=== PATIENT | male | born 1975 | race Caucasian/White ===

== ENCOUNTER 2021-01-16 16:47 | Inpatient (IN) | payer OTHER, SELFPAY ==
[~2021-01-16] VITALS: Ht 188 cm; Wt 64.0 kg
--- NOTE | 2021-01-16 17:42 | NUR ---
ASSUMED CARE OF PATIENT. 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 PT REPORTS HE HAS BEEN DOING METH. TAVERN KEEPER ON. SINUS TACH NOTED. VS STABLE. CALL LIGHT IN PLACE. WILL CONTINUE TO MONITOR.
--- NOTE | 2021-01-16 18:05 | NUR ---
DR GRANADOS IN ROOM
--- NOTE | 2021-01-16 18:27 | NUR ---
PT IN CT
[2021-01-16 18:43] LABS: MEAN CORPUSCULAR HEMOGLOBIN 27.4 pg (27.5-34.5); MEAN CORPUSCULAR HGB CONC 33.1 g/dL (33.2-36.2); MEAN PLATELET VOLUME 8.5 fL (7.4-10.4); PLATELET COUNT 287 x10^3/uL (130-400); RED CELL DISTRIBUTION WIDTH 19.4 % (9.4-14.8)
[2021-01-16 18:45] LABS: MD YES
--- NOTE | 2021-01-16 18:52 | NUR ---
BEDSIDE REPORT RECEIVED FROM AQUILES CALVO
[2021-01-16 18:53] LABS: ALANINE AMINOTRANSFERASE 12 U/L (12-78); ALBUMIN 1.9 g/dL (3.4-5.0); ANION GAP 7 mmol/L (5-15); CALCIUM 7.9 mg/dL (8.5-10.1); CHLORIDE 97 mmol/L (98-107); CREATININE 1.03 mg/dL (0.7-1.3)
[2021-01-16 18:55] LABS: ALKALINE PHOSPHATASE 53 U/L (45-117); BILIRUBIN,TOTAL 0.7 mg/dL (0.2-1.0); TOTAL PROTEIN 8.8 g/dL (6.4-8.2)
--- NOTE | 2021-01-16 18:55 | NUR ---
PT SITTING UPRIGHT ON EMMA VALERO, VSS. PT DENIES ANY NEEDS AT THIS TIME. CALL LIGHT AND BELONGINGS WITHIN REACH. CONTINUOUS MONITORING IN PLACE.
--- NOTE | 2021-01-16 18:58 | NUR ---
REPORT GIVEN TO LUBNA NEWMAN
[2021-01-16] MEDS ORDERED: SODIUM CHLORIDE 0.9% 1,000ML IVBOLUS ONE ×2 (19:00→21:30)
[2021-01-16] MEDS ORDERED: SODIUM CHLORIDE FLUSH 10ML SYR IVF ONE (19:00)
[2021-01-16] MEDS ORDERED: chlorPROMAZINE 25 MG/ML, 1ML IM ONE (19:30)
[2021-01-16 20:06] LABS: ANISOCYTOSIS 1+; LYMPH#(MANUAL) 1.34 x10^3/uL (1-3.4); LYMPHS% (MANUAL) 14 % (22-44); MONOS#(MANUAL) 2.11 x10^3/uL (0.3-2.7); MONOS% (MANUAL) 22 % (2-9); MYELOCYTES% (MANUAL) 1 % (0-0); REACTIVE LYMPHS % (MANUAL) 1 % (0-0); SEG#(MANUAL) 5.95 x10^3/uL (1.8-6.8); SEGS% (MANUAL) 62 % (42-75)
[2021-01-16 20:07] LABS: POLYCHROMASIA 1+; ROULEAUX 1+
[2021-01-16 20:08] LABS: HYPOCHROMIA 1+; STOMATOCYTES 1+
[2021-01-16 20:09] LABS: <PLATELET ESTIMATE> ADEQUATE; <PLT MORPHOLOGY> NORMAL PLT MORPH
[2021-01-16] MEDS ORDERED: CALCIUM CARBONATE 500 MG TAB.CHEW ONE (20:20)
[2021-01-16] MEDS ORDERED: CALCIUM CARBONATE 500 MG TABLET PO ONE (20:30)
--- NOTE | 2021-01-16 21:05 | NUR ---
PT SITTING UPRIGHT ON GURNEY, FRIEND AT BEDSIDE. PT REPORTS SIGNIFICANT RELIEF OF HICCUPS FOLLOWING ACID OPERATOR. PT STATES HE WILL "TRY TO PEE FOR A SAMPLE". PT DENIES ANY NEEDS AT THIS TIME. CALL LIGHT AND BELONGINGS WITHIN REACH
[2021-01-16] MEDS ORDERED: ACETAMINOPHEN 325 MG TABLET ONE (21:28)
[2021-01-16] MEDS ORDERED: PIPERACILLIN/TAZO/PMX 3.375GM 50 ML ONE (21:28)
[2021-01-16] MEDS ORDERED: ACETAMINOPHEN 325 MG TABLET PO ONE (21:30)
[2021-01-16] MEDS ORDERED: PIPERACILLIN/TAZO 3.375 GM in DEXTROSE 5% 50 ML IVPB ONE (21:30)
[2021-01-16 21:32] LABS: AMPHETAMINE SCREEN, URINE Positive (Negative); BARBITURATE SCREEN, URINE Negative (Negative); BENZODIAZEPINE SCREEN, URINE Negative (Negative); CANNABINOID SCREEN, URINE Negative (Negative); COCAINE SCREEN, URINE Negative (Negative); METHADONE SCREEN, URINE Negative (Negative); OPIATE SCREEN, URINE Negative (Negative)
[2021-01-16 21:37] LABS: MICROSCOPIC INDICATED
--- NOTE | 2021-01-16 21:47 | NUR ---
LAB AT BEDSIDE TO OBTAIN BLOOD CULTURES X2 PRIOR TO ABX ADMIN
--- NOTE | 2021-01-16 22:07 | NUR ---
HOSPITALIST AT BEDSIDE
[2021-01-16] MEDS: PIPERACILLIN/TAZO 3.375 GM in DEXTROSE 5% 50 ML IVPB SCH (22:29)
[2021-01-16] MEDS ORDERED: ONDANSETRON 2MG/ML, 2ML IVPush PRN (22:30)
[2021-01-16] MEDS ORDERED: BACLOFEN 10 MG TABLET PO PRN (22:30)
[2021-01-16] MEDS ORDERED: PROMETHAZINE 25 MG/ML, 1ML IM PRN (22:30)
[2021-01-16] MEDS ORDERED: SODIUM CHLORIDE 0.9% 1,000 ML IV SCH (22:30)
[2021-01-16] MEDS ORDERED: ACETAMINOPHEN 325 MG TABLET PO PRN (22:30)
[2021-01-16] MEDS ORDERED: VANCOMYCIN PER PHARMACY MC PRN (22:30)
--- NOTE | 2021-01-16 22:38 | NUR ---
CALL WITH HOSPITALIST DR. JEAN REGARDING ADMISSION LEVEL OF CARE FOR PT. HOSPITALIST STATES TO ADMIT PT TO MED TELE OR CARD TELE FLOOR. DR. JEAN WILL PLACE ORDERS TO REFLECT
--- NOTE | 2021-01-16 22:41 | NUR ---
ADDITIONAL CALL TO HOSPITALIST DR. JEAN REGARDING DOWNWARD TRENDING VITALS, PER ORDER. PT TO BE STARTED ON ADDITIONAL BOLUS NS AND CONTINUOUS CARDIAC AND PULSE OX MONITORING. ERP ALSO AWARE
--- NOTE | 2021-01-16 22:53 | NUR ---
VITAL SIGNS CONTINUALL TRENDING DOWNWARD, SEE VITALS DOCUMENTATION, HOSPITALIST AWARE AND ERP VANBIBBER AT BEDSIDE. PT MOVED FROM ED ROOM 16 TO TRAUMA 3.
--- NOTE | 2021-01-16 23:01 | NUR ---
BEDSIDE REPORT TO SIMONE CALVO
--- NOTE | 2021-01-16 23:03 | NUR ---
Pt evaluated and moved to trauma room for higher acuity monitoring/care. Dr Bauer consulted re: POC with no further orders other than fluid bolus.
--- NOTE | 2021-01-16 23:04 | NUR ---
bedside report from marianna valdez. pt moved to trauma bay due to hypotension. pt alert and answering questions appropriately.
[2021-01-16] MEDS ORDERED: NOREPINEPHRINE 8 MG in SODIUM CHLORIDE 0.9% 242 ML IV PRN (23:30)
--- NOTE | 2021-01-16 23:33 | NUR ---
pt started on levophed. preparing for dr siddiqui to placed central line.
[2021-01-16 23:43] LABS: IRON LEVEL 31 mcg/dL (65-175)
--- NOTE | 2021-01-16 23:46 | NUR ---
consent for central line signed by pt and added to paper chart.
--- NOTE | 2021-01-16 23:48 | NUR ---
blood consent signed by pt and added to paper chart.
--- NOTE | 2021-01-16 23:49 | NUR ---
pt reports daily motrin intake and black emesis x "a couple of days"
[2021-01-17] MEDS ORDERED: PANTOPRAZOLE 80 MG in SODIUM CHLORIDE 0.9% 100 ML IV SCH
[2021-01-17] MEDS ORDERED: PANTOPRAZOLE 80 MG in SODIUM CHLORIDE 0.9% 50 ML IVPB ONE
[2021-01-17 00:08] LABS: % IRON SATURATION 19 % (20-55); TOTAL IRON BINDING CAPACITY 167 mcg/dL (250-450)
[2021-01-17] MEDS ORDERED: FENTANYL PF 100 MCG/2ML ONE (00:10)
--- NOTE | 2021-01-17 00:22 | NUR ---
dr siddiqui at bedside placing central line. preparing to start emergency release blood
--- NOTE | 2021-01-17 00:27 | NUR ---
emergency release blood started per dr no verbal orders.
[2021-01-17] MEDS ORDERED: FENTANYL PF 100 MCG/2ML IVPush ONE (00:30)
--- NOTE | 2021-01-17 00:36 | NUR ---
dr siddiqui visualized x ray, states ok to use central line
[2021-01-17 00:59] LABS: INTERNATIONAL NORMALIZED RATIO 1.22 (0.93-1.1)
--- NOTE | 2021-01-17 01:05 | NUR ---
emergency release blood at finished. pt with no adverse reaction symptoms. please see vital signs for transfusion vitals.
--- NOTE | 2021-01-17 01:16 | NUR ---
report to marianna mcrae
[2021-01-17] MEDS ORDERED: VANCOMYCIN 2,000 MG in SODIUM CHLORIDE 0.9% 500 ML IV ONE (01:30)
[2021-01-17] MEDS ORDERED: PHARMACOKINETIC CONSULTATION MC ONE (02:00)
[2021-01-17] MEDS ORDERED: PHARMACOKINETIC MONITORING MC PRN (02:00)
[2021-01-17 03:11] LABS: BASOPHILS % (AUTO) 1 % (0-1); EOSINOPHILS % (AUTO) 0 % (1-7); LYMPHOCYTES % (AUTO) 23 % (22-44); MEAN CORPUSCULAR HGB CONC 33.3 g/dL (33.2-36.2); MEAN PLATELET VOLUME 8.1 fL (7.4-10.4); MONOCYTES % (AUTO) 19 % (2-9); NEUTROPHILS % (AUTO) 57 % (42-75); PLATELET COUNT 215 x10^3/uL (130-400); RED BLOOD COUNT 2.53 x10^6/uL (4.38-5.82)
[2021-01-17 03:15] VITALS: BP 116/67
[2021-01-17 03:24] LABS: ALANINE AMINOTRANSFERASE 9 U/L (12-78); ALBUMIN 1.4 g/dL (3.4-5.0); ANION GAP 6 mmol/L (5-15); CALCIUM 7.2 mg/dL (8.5-10.1); CHLORIDE 108 mmol/L (98-107); CHOLESTEROL, TOTAL 51 mg/dL (140-239); CREATININE 0.87 mg/dL (0.7-1.3); TRIGLYCERIDES 210 mg/dL (50-200); VLDL CHOLESTEROL 42 mg/dL (0-25)
[2021-01-17 03:30] VITALS: BP 106/61
[2021-01-17 03:34] LABS: ALKALINE PHOSPHATASE 40 U/L (45-117); BILIRUBIN,TOTAL 0.6 mg/dL (0.2-1.0); CHOL/HDL RATIO 6.4; HDL CHOL % 16 % (26-37); HDL CHOLESTEROL (DIRECT) 8 mg/dL (40-60); TOTAL PROTEIN 6.9 g/dL (6.4-8.2)
[2021-01-17 03:42] LABS: LDL CHOLESTEROL,CALCULATED < 5 mg/dL (54-169); LDL/HDL RATIO 0.6 (0.5-3.0)
[2021-01-17 03:48] LABS: CHLORIDE,URINE RANDOM < 10 mmol/L; POTASSIUM,URINE RANDOM 50 mmol/L; SODIUM,URINE RANDOM 13 mmol/L
[2021-01-17 03:55] LABS: MD SCAN
[2021-01-17 05:04] VITALS: BP 105/65
[2021-01-17] MEDS: PIPERACILLIN/TAZO 3.375 GM in DEXTROSE 5% 50 ML IVPB SCH (06:23)
[2021-01-17] MEDS ORDERED: FAMOTIDINE 20 MG TABLET PO SCH (09:00)
== END 2021-01-17 09:45 | disposition left against medical advice (07) | DRG 871 ==
LOC: ED 17:17 → EDIP 22:25 → UNDOADMOB 22:25 → INTOOBSV 22:25 → EDIP 23:00 → OBSVTOIN 23:01 → INTOOBSV 23:01 → CCU 01-17 01:28
PROVIDERS: ADMIT Family Medicine; ATTEND Internal Medicine
PROC: 02HV33Z Insertion of Infusion Device into Superior Vena Cava, Percutaneous Approach (ICD-10-PCS; principal; 2021-01-16)
PROC: B548ZZA Ultrasonography of Superior Vena Cava, Guidance (ICD-10-PCS; 2021-01-16)
PROC: 30233N1 Transfusion of Nonautologous Red Blood Cells into Peripheral Vein, Percutaneous Approach (ICD-10-PCS; 2021-01-17)
DX: A41.9 Sepsis, unspecified organism (principal); E43 Unspecified severe protein-calorie malnutrition; D62 Acute posthemorrhagic anemia; E87.1 Hypo-osmolality and hyponatremia; R57.9 Shock, unspecified; R64 Cachexia; K92.1 Melena; Z68.1 Body mass index [BMI] 19.9 or less, adult; E53.8 Deficiency of other specified B group vitamins; E78.1 Pure hyperglyceridemia; E86.0 Dehydration; E83.51 Hypocalcemia; F15.10 Other stimulant abuse, uncomplicated; Z21 Asymptomatic human immunodeficiency virus [HIV] infection status; Z53.29 Procedure and treatment not carried out because of patient's decision for other reasons
CPT/HCPCS: 36415; 36430; 70450; 71045; 74018; 80053; 80061; 80074; 80307; 80320; 81001; 82436; 82570; 82607; 83540; 83550; 83605; 83735; 84133; 84145; 84300; 84443; 85014; 85018; 85025; 85610; 85730; 86592; 86701; 86702; 86780; 86850; 86900; 86923; 87040; 87081; 87086; 87535; 87806; 96361; 96372; 96374; J2543; J3010; J3230; J3370; C9113; G0378; G0475; G0480; J7030; J7040; J7050; P9016

== ENCOUNTER 2021-02-13 00:02 | Inpatient (IN) | payer MEDICAID, OTHER ==
[~2021-02-13] VITALS: Ht 182.9 cm; Wt 71.2 kg
[2021-02-13] VITALS (14 sets, daily range): BP systolic 80–109; BP diastolic 50–68
--- NOTE | 2021-02-13 00:19 | NUR ---
PT ARRIVES CRITICALLY ILL. PT INITIALLY REFUSING ALL INTERVENTIONS UNTIL WE GIVE HIM WATER. PT PROVIDED WATER AND 2 PIVS PLACED. IVF PRESSURED BAGGING FOR LOW BLOOD PRESSURE. PT HYPOTENSIVE. ERASTO SILVEIRA AT BEDSIDE, LEVOPHEN ORDERED AND PHARMACY NOTIFIED. PT BREATHING APNIC. PT STILL ALERT AND ANSWERING QUESTIONS. PT STATES IF HE NEEDS TO BE INTUBATED HE WANTS US TO INTUBATE.
[2021-02-13] MEDS ORDERED: WEIGHT NEEDED FOR VANCO DOSING MC SCH (00:30)
[2021-02-13] MEDS ORDERED: SULFAMETHOXAZOLE IV ONE (00:30)
[2021-02-13] MEDS ORDERED: PANTOPRAZOLE 80 MG in SODIUM CHLORIDE 0.9% 50 ML IVPB ONE (00:30)
[2021-02-13] MEDS ORDERED: VANCOMYCIN PER PHARMACY MC ONE (00:30)
[2021-02-13] MEDS ORDERED: SODIUM CHLORIDE 0.9% 1,000ML IVBOLUS ONE ×2 (00:30→04:00)
[2021-02-13] MEDS ORDERED: PANTOPRAZOLE 80 MG in SODIUM CHLORIDE 0.9% 100 ML IV SCH (00:30)
[2021-02-13] MEDS ORDERED: TRIMETHOPRIM IV ONE (00:30)
[2021-02-13] MEDS ORDERED: SULFAMETH./TRIMETHOPRIM 10 ML in DEXTROSE 5% 250 ML IV ONE (00:30)
[2021-02-13] MEDS ORDERED: PIPERACILLIN/TAZO 3.375 GM in DEXTROSE 5% 50 ML IVPB ONE (00:30)
--- NOTE | 2021-02-13 00:32 | NUR ---
FSBG READING LOW. AMP D50 ORDERED
[2021-02-13] MEDS ORDERED: DEXTROSE 50%, 50ML SYRINGE ONE ×2 (00:34→01:13)
--- NOTE | 2021-02-13 00:35 | NUR ---
SEPSIS BOLUS INFUSING. LAB AT BEDSIDE. BLOOD CULTURES X2 DRAWN AND ABX TO BE STARTED
[2021-02-13] MEDS: NOREPINEPHRINE 8 MG in SODIUM CHLORIDE 0.9% 242 ML IV PRN ×5 (00:42→20:15)
[2021-02-13 00:53] LABS: MEAN CORPUSCULAR HEMOGLOBIN 28.3 pg (27.5-34.5); MEAN PLATELET VOLUME 9.5 fL (7.4-10.4); PLATELET COUNT 106 x10^3/uL (130-400); RED CELL DISTRIBUTION WIDTH 20.9 % (9.4-14.8)
[2021-02-13 00:55] LABS: MEAN CORPUSCULAR HGB CONC 28.7 g/dL (33.2-36.2)
[2021-02-13 00:56] LABS: CALCIUM 6.8 mg/dL (8.5-10.1); CREATININE 1.65 mg/dL (0.7-1.3)
[2021-02-13 00:57] LABS: ALANINE AMINOTRANSFERASE 26 U/L (12-78)
[2021-02-13] MEDS ORDERED: DEXTROSE 50%, 50ML SYRINGE IVPush ONE (01:00)
[2021-02-13 01:01] LABS: ALKALINE PHOSPHATASE 86 U/L (45-117); BILIRUBIN,TOTAL 1.1 mg/dL (0.2-1.0); TOTAL PROTEIN 3.8 g/dL (6.4-8.2); TROPONIN I < 0.015 ng/mL (0.000-0.045)
--- NOTE | 2021-02-13 01:01 | NUR ---
EJ TO LEFT NECK 20 G TO RIGHT BICEP, 20 G TO LEFT WRIST, PT NOT RESPONSIVE TO VERBAL OR NOXIOUS STIMULI AT THIS TIME
--- NOTE | 2021-02-13 01:01 | NUR ---
PT STILL BREATHING ON HIS OWN, HOWEVER NO LONGER RESPONDING TO VERBAL
[2021-02-13 01:04] LABS: CHLORIDE 85 mmol/L (98-107)
[2021-02-13 01:05] LABS: ANION GAP 36 mmol/L (5-15)
[2021-02-13] MEDS ORDERED: VANCOMYCIN 1,400 MG in SODIUM CHLORIDE 0.9% 250 ML IV ONE (01:30)
[2021-02-13] MEDS ORDERED: DEXTROSE 10% 1,000 ML IV SCH (01:30)
--- NOTE | 2021-02-13 01:30 | NUR ---
pt awake a and o x 4 again screamind for water, pt arguing with md about going ama like last time if he does not get to drink water, md verbal order to give pt water at this time, pt drank without difficulty
[2021-02-13 01:33] LABS: MICROSCOPIC INDICATED
[2021-02-13] MEDS ORDERED: FENTANYL PF 100 MCG/2ML ONE (01:58)
[2021-02-13] MEDS ORDERED: ONDANSETRON 2MG/ML, 2ML ONE (02:09)
[2021-02-13 02:17] LABS: MD YES
[2021-02-13 02:20] LABS: ANISOCYTOSIS 1+; BASOS#(MANUAL) 0.26 x10^3/uL (0-0.1); BASOS% (MANUAL) 1 % (0-1); HYPOCHROMIA 1+; LYMPH#(MANUAL) 13.99 x10^3/uL (1-3.4); LYMPHS% (MANUAL) 53 % (22-44); MONOS#(MANUAL) 0.79 x10^3/uL (0.3-2.7); MONOS% (MANUAL) 3 % (2-9); MYELOCYTES# (MANUAL) 0.26 x10^3/uL (0-0); MYELOCYTES% (MANUAL) 1 % (0-0); SEG#(MANUAL) 11.09 x10^3/uL (1.8-6.8); SEGS% (MANUAL) 42 % (42-75)
[2021-02-13 02:21] LABS: <PLATELET ESTIMATE> DECREASED; <PLT MORPHOLOGY> NORMAL PLT MORPH; POLYCHROMASIA 1+
--- NOTE | 2021-02-13 02:48 | NUR ---
TREVOR ARNOLD (MOM) WOULD LIKE ANY UPDATES [phone]
[2021-02-13] MEDS ORDERED: FENTANYL PF 100 MCG/2ML IVPush ONE (03:00)
[2021-02-13] MEDS ORDERED: ONDANSETRON 2MG/ML, 2ML IVPush ONE (03:00)
--- NOTE | 2021-02-13 03:29 | NUR ---
BLOOD CONTINUES TO INFUSE AWAITING ADMITTING DR SUTHERLAND
--- NOTE | 2021-02-13 03:46 | NUR ---
pt in nad
[2021-02-13] MEDS ORDERED: ONDANSETRON ODT 4 MG PO PRN (04:00)
[2021-02-13] MEDS ORDERED: OXYcodone IR 5MG TABLET PO PRN (04:00)
[2021-02-13] MEDS ORDERED: PROMETHAZINE 25 MG/ML, 1ML IM PRN (04:00)
[2021-02-13] MEDS ORDERED: hydrALAzine 20 MG/ML, 1ML IVPush PRN (04:00)
[2021-02-13] MEDS ORDERED: ACETAMINOPHEN 325 MG TABLET PO PRN (04:00)
[2021-02-13] MEDS ORDERED: ONDANSETRON 2MG/ML, 2ML IVPush PRN (04:00)
[2021-02-13] MEDS ORDERED: DOCUSATE 100 MG CAPSULE PO PRN (04:00)
--- NOTE | 2021-02-13 04:03 | NUR ---
LATE ENTRY: MESSAGE LEFT FOR DR. BOSTON TO ADDRESS PT. CODE STATUS IN EMR; PT. VERBALIZED WISHES TO BE A DNR.
--- NOTE | 2021-02-13 04:38 | NUR ---
PT TO ICU WITH THIS RN AND TECH IN NAD
[2021-02-13] MEDS: CEFTRIAXONE 2 GM in DEXTROSE 5% 50 ML IVPB SCH (06:40)
[2021-02-13] MEDS ORDERED: VANCOMYCIN PER PHARMACY MC PRN (07:00)
[2021-02-13] MEDS ORDERED: PHARMACOKINETIC MONITORING MC PRN (07:00)
[2021-02-13] MEDS ORDERED: PHARMACOKINETIC CONSULTATION MC ONE (07:00)
[2021-02-13] MEDS ORDERED: SULFAMETH./TRIMETHOPRIM DS 800MG/160MG TABLET PO SCH (09:00)
[2021-02-13] MEDS: SODIUM BICARBONATE 8.4% 150 MEQ in DEXTROSE 5% 1,000 ML IV SCH ×2 (09:11→20:15)
[2021-02-13] MEDS: MULTIVITAMIN 1 TABLET PO SCH (09:14)
[2021-02-13] MEDS: PANTOPRAZOLE 80 MG in SODIUM CHLORIDE 0.9% 100 ML IV SCH ×2 (09:17→18:18)
[2021-02-13 10:51] LABS: AMPHETAMINE SCREEN, URINE Positive (Negative); BENZODIAZEPINE SCREEN, URINE Negative (Negative); CANNABINOID SCREEN, URINE Negative (Negative); COCAINE SCREEN, URINE Negative (Negative); METHADONE SCREEN, URINE Negative (Negative); OPIATE SCREEN, URINE Negative (Negative)
[2021-02-13 10:53] LABS: BARBITURATE SCREEN, URINE Negative (Negative)
[2021-02-13] MEDS: METRONIDAZOLE PMX 500MG/100ML 100 ML IV SCH ×2 (11:47→20:54)
[2021-02-13] MEDS ORDERED: SODIUM CHLORIDE 0.9% 250 ML IV ONE (14:00)
[2021-02-13] MEDS: DAPTOMYCIN 350 MG in SODIUM CHLORIDE 0.9% 100 ML IVPB SCH (14:22)
[2021-02-13] MEDS ORDERED: VASOPRESSIN 20 UNIT in SODIUM CHLORIDE 0.9% 99 ML IV PRN (16:00)
[2021-02-13] MEDS: THIAMINE 100 MG in SODIUM CHLORIDE 0.9% 50 ML IV SCH (16:27)
[2021-02-13] MEDS: MORPHINE SULFATE 4 MG/ML, 1ML IVPush PRN (22:23)
[2021-02-13] MEDS: NOREPINEPHRINE 32 MG in SODIUM CHLORIDE 0.9% 218 ML IV PRN (23:59)
[2021-02-14] MEDS: PANTOPRAZOLE 80 MG in SODIUM CHLORIDE 0.9% 100 ML IV SCH ×2 (02:51→13:30)
[2021-02-14 03:57] LABS: MEAN CORPUSCULAR HEMOGLOBIN 29.6 pg (27.5-34.5); MEAN CORPUSCULAR HGB CONC 34.9 g/dL (33.2-36.2); MEAN PLATELET VOLUME 8.9 fL (7.4-10.4); PLATELET COUNT 57 x10^3/uL (130-400); RED BLOOD COUNT 2.73 x10^6/uL (4.38-5.82); RED CELL DISTRIBUTION WIDTH 16.3 % (9.4-14.8)
[2021-02-14 04:08] LABS: ALANINE AMINOTRANSFERASE 50 U/L (12-78); ALBUMIN 1.2 g/dL (3.4-5.0); ANION GAP 6 mmol/L (5-15); CHLORIDE 96 mmol/L (98-107); CHOLESTEROL, TOTAL < 50 mg/dL (140-239); CREATININE 0.86 mg/dL (0.7-1.3)
[2021-02-14 04:11] LABS: CALCIUM 5.8 mg/dL (8.5-10.1)
[2021-02-14 04:16] LABS: ALKALINE PHOSPHATASE 95 U/L (45-117); BILIRUBIN,TOTAL 1.4 mg/dL (0.2-1.0); CHOL/HDL RATIO 6.3; HDL CHOLESTEROL (DIRECT) 8 mg/dL (40-60); LDL CHOLESTEROL,CALCULATED 5 mg/dL (54-169); TOTAL PROTEIN 3.9 g/dL (6.4-8.2); TRIGLYCERIDES 185 mg/dL (50-200); VLDL CHOLESTEROL 37 mg/dL (0-25)
[2021-02-14 04:20] LABS: HDL CHOL % 0 % (26-37)
[2021-02-14] MEDS: CEFTRIAXONE 2 GM in DEXTROSE 5% 50 ML IVPB SCH (04:28)
[2021-02-14 04:35] LABS: MD YES
[2021-02-14 04:36] LABS: LYMPHS% (MANUAL) 11 % (22-44)
[2021-02-14 04:37] LABS: ANISOCYTOSIS 1+; MONOS#(MANUAL) 0.76 x10^3/uL (0.3-2.7); MONOS% (MANUAL) 4 % (2-9); SEG#(MANUAL) 16.24 x10^3/uL (1.8-6.8); SEGS% (MANUAL) 85 % (42-75)
[2021-02-14 04:38] LABS: <PLATELET ESTIMATE> DECREASED; <PLT MORPHOLOGY> NORMAL PLT MORPH; POLYCHROMASIA 1+
[2021-02-14] MEDS ORDERED: CALCIUM GLUCONATE 9.2 MEQ in SODIUM CHLORIDE 0.9% 100 ML IV ONE (05:00)
[2021-02-14] MEDS: METRONIDAZOLE PMX 500MG/100ML 100 ML IV SCH ×3 (05:11→20:52)
[2021-02-14] MEDS ORDERED: SODIUM PHOSPHATE 20 MMOL in SODIUM CHLORIDE 0.9% 500 ML IV ONE (06:30)
[2021-02-14] MEDS ORDERED: POTASSIUM CHLORIDE 20 MEQ TAB.ER.PRT PO ONE (06:30)
[2021-02-14] MEDS ORDERED: CALCIUM CHLORIDE 13.6 MEQ in SODIUM CHLORIDE 0.9% 100 ML IV ONE (07:00)
[2021-02-14] MEDS: SODIUM BICARBONATE 8.4% 150 MEQ in DEXTROSE 5% 1,000 ML IV SCH (07:24)
[2021-02-14] MEDS: MULTIVITAMIN 1 TABLET PO SCH (09:00)
[2021-02-14] MEDS ORDERED: BICILLIN-LA 2,400,000 UNITS/4 ML IM ONE (10:00)
[2021-02-14] MEDS ORDERED: chlorPROMAZINE 25 MG/ML, 1ML IM ONE (11:00)
[2021-02-14] MEDS: CALCIUM CARBONATE 500 MG TAB.CHEW PO SCH ×3 (11:30→21:00)
[2021-02-14] MEDS: NOREPINEPHRINE 32 MG in SODIUM CHLORIDE 0.9% 218 ML IV PRN ×2 (12:31→23:33)
[2021-02-14] MEDS ORDERED: LIDOCAINE-MPF 1%, 5ML ONE (13:57)
[2021-02-14 15:42] LABS: GLUCOSE, CSF 64 mg/dL (40-80); TOTAL PROTEIN,CSF 29 mg/dL (15-45)
[2021-02-14] MEDS: ONDANSETRON 2MG/ML, 2ML IVPush PRN (16:03)
[2021-02-14] MEDS: DAPTOMYCIN 350 MG in SODIUM CHLORIDE 0.9% 100 ML IVPB SCH (16:27)
[2021-02-14] MEDS: THIAMINE 100 MG in SODIUM CHLORIDE 0.9% 50 ML IV SCH (17:15)
[2021-02-15] MEDS: CEFTRIAXONE 2 GM in DEXTROSE 5% 50 ML IVPB SCH (04:42)
[2021-02-15 04:46] LABS: MEAN CORPUSCULAR HEMOGLOBIN 29.8 pg (27.5-34.5); MEAN CORPUSCULAR HGB CONC 34.4 g/dL (33.2-36.2); MEAN PLATELET VOLUME 8.5 fL (7.4-10.4); RED CELL DISTRIBUTION WIDTH 16.6 % (9.4-14.8)
[2021-02-15 05:00] LABS: ALBUMIN 1.1 g/dL (3.4-5.0); ANION GAP 5 mmol/L (5-15); CALCIUM 6.3 mg/dL (8.5-10.1); CHLORIDE 98 mmol/L (98-107)
[2021-02-15 05:04] LABS: ALANINE AMINOTRANSFERASE 41 U/L (12-78); ALKALINE PHOSPHATASE 77 U/L (45-117); BILIRUBIN,TOTAL 1.2 mg/dL (0.2-1.0); CREATININE 0.62 mg/dL (0.7-1.3)
[2021-02-15] MEDS: METRONIDAZOLE PMX 500MG/100ML 100 ML IV SCH ×3 (05:31→21:01)
[2021-02-15 05:53] LABS: MD YES
[2021-02-15 05:54] LABS: PLATELET COUNT 34 x10^3/uL (130-400)
[2021-02-15 06:03] LABS: LYMPH#(MANUAL) 1.65 x10^3/uL (1-3.4); LYMPHS% (MANUAL) 16 % (22-44); MONOS#(MANUAL) 0.62 x10^3/uL (0.3-2.7); MONOS% (MANUAL) 6 % (2-9); SEG#(MANUAL) 8.03 x10^3/uL (1.8-6.8); SEGS% (MANUAL) 78 % (42-75)
[2021-02-15 06:04] LABS: SMUDGE CELLS 1+; TOXIC GRAN 1+
[2021-02-15 06:05] LABS: <PLATELET ESTIMATE> DECREASED; ANISOCYTOSIS 1+; POLYCHROMASIA 1+
[2021-02-15 06:06] LABS: <PLT MORPHOLOGY> NORMAL PLT MORPH
[2021-02-15] MEDS ORDERED: CALCIUM CHLORIDE 13.6 MEQ in SODIUM CHLORIDE 0.9% 100 ML IV ONE (06:30)
[2021-02-15] MEDS ORDERED: SODIUM PHOSPHATE 20 MMOL in SODIUM CHLORIDE 0.9% 500 ML IV ONE (06:30)
[2021-02-15] MEDS: POTASSIUM CHLORIDE 20 MEQ TAB.ER.PRT PO SCH ×2 (08:05→16:30)
[2021-02-15] MEDS: SULFAMETH./TRIMETHOPRIM DS 800MG/160MG TABLET PO SCH (08:05)
[2021-02-15] MEDS: CALCIUM CARBONATE 500 MG TAB.CHEW PO SCH ×2 (08:05→16:29)
[2021-02-15] MEDS: PANTOPRAZOLE 40 MG IV IVPush SCH ×2 (08:05→22:21)
[2021-02-15] MEDS: MULTIVITAMIN 1 TABLET PO SCH (08:06)
[2021-02-15 10:42] VITALS: BP 89/44
[2021-02-15 10:47] VITALS: BP 89/44
[2021-02-15 11:06] VITALS: BP 91/54
[2021-02-15] MEDS ORDERED: OMNIPAQUE 350 MG/ML, 100ML BOTTLE ONE (14:24)
[2021-02-15] MEDS: THIAMINE 100 MG in SODIUM CHLORIDE 0.9% 50 ML IV SCH (16:30)
[2021-02-15] MEDS: NOREPINEPHRINE 32 MG in SODIUM CHLORIDE 0.9% 218 ML IV PRN (17:05)
[2021-02-15] MEDS ORDERED: ADENOSINE 6 MG/2 ML ONE (22:54)
[2021-02-15] MEDS ORDERED: AMIODARONE 150 MG in DEXTROSE 5% 100 ML IV ONE (23:00)
[2021-02-15] MEDS ORDERED: SODIUM CHLORIDE 0.9% 1,000 ML IV ONE (23:00)
[2021-02-16] VITALS (17 sets, daily range): BP systolic 82–114; BP diastolic 42–74
[2021-02-16] MEDS: CALCIUM CARBONATE 500 MG TAB.CHEW PO SCH ×4 (00:06→20:49)
[2021-02-16] MEDS: CEFTRIAXONE 2 GM in DEXTROSE 5% 50 ML IVPB SCH (04:35)
[2021-02-16 04:50] LABS: MEAN CORPUSCULAR HEMOGLOBIN 30.7 pg (27.5-34.5); MEAN CORPUSCULAR HGB CONC 34.6 g/dL (33.2-36.2); MEAN PLATELET VOLUME 8.4 fL (7.4-10.4); RED BLOOD COUNT 3.05 x10^6/uL (4.38-5.82); RED CELL DISTRIBUTION WIDTH 16.6 % (9.4-14.8)
[2021-02-16 05:05] LABS: CHLORIDE 97 mmol/L (98-107)
[2021-02-16 05:11] LABS: PLATELET COUNT 36 x10^3/uL (130-400)
[2021-02-16 05:12] LABS: ANION GAP 4 mmol/L (5-15); CALCIUM 6.5 mg/dL (8.5-10.1); CREATININE 0.63 mg/dL (0.7-1.3)
[2021-02-16] MEDS: METRONIDAZOLE PMX 500MG/100ML 100 ML IV SCH ×3 (05:15→19:37)
[2021-02-16] MEDS: AMIODARONE 450 MG in DEXTROSE 5% 241 ML IV PRN ×2 (05:15→19:25)
[2021-02-16 06:01] LABS: MD YES
[2021-02-16 06:03] LABS: MONOS#(MANUAL) 0.69 x10^3/uL (0.3-2.7); MONOS% (MANUAL) 7 % (2-9); REACTIVE LYMPHS % (MANUAL) 1 % (0-0)
[2021-02-16 06:04] LABS: LYMPH#(MANUAL) 1.47 x10^3/uL (1-3.4); LYMPHS% (MANUAL) 15 % (22-44); SEG#(MANUAL) 7.55 x10^3/uL (1.8-6.8); SEGS% (MANUAL) 77 % (42-75); SMUDGE CELLS 1+; TOXIC GRAN 1+
[2021-02-16 06:05] LABS: <PLATELET ESTIMATE> DECREASED; <PLT MORPHOLOGY> NORMAL PLT MORPH; ANISOCYTOSIS 1+; POLYCHROMASIA 1+
[2021-02-16] MEDS ORDERED: SODIUM CHLORIDE 0.9% 250 ML IV SCH (06:30)
[2021-02-16] MEDS ORDERED: POTASSIUM CHLORIDE 40 MEQ in SODIUM CHLORIDE 0.9% 100 ML IV ONE (06:30)
[2021-02-16] MEDS: MULTIVITAMIN 1 TABLET PO SCH (08:42)
[2021-02-16] MEDS: PANTOPRAZOLE 40 MG IV IVPush SCH ×2 (08:43→20:50)
[2021-02-16] MEDS: SULFAMETH./TRIMETHOPRIM DS 800MG/160MG TABLET PO SCH (08:43)
[2021-02-16] MEDS: NOREPINEPHRINE 32 MG in SODIUM CHLORIDE 0.9% 218 ML IV PRN ×2 (08:43→23:10)
[2021-02-16] MEDS: BICTEGRAV/EMTRICIT/TENOFOV ALA TAB PO SCH (12:14)
[2021-02-16] MEDS: THIAMINE 100 MG in SODIUM CHLORIDE 0.9% 50 ML IV SCH (16:16)
[2021-02-16] MEDS: FILTER 0.22 MICRON IV PRN (19:25)
[2021-02-17] MEDS: CEFTRIAXONE 2 GM in DEXTROSE 5% 50 ML IVPB SCH (03:08)
[2021-02-17 03:41] LABS: BASOPHILS % (AUTO) 0 % (0-1); EOSINOPHILS % (AUTO) 0 % (1-7); LYMPHOCYTES % (AUTO) 15 % (22-44); MEAN CORPUSCULAR HEMOGLOBIN 30.9 pg (27.5-34.5); MEAN CORPUSCULAR HGB CONC 34.6 g/dL (33.2-36.2); MEAN PLATELET VOLUME 8.6 fL (7.4-10.4); MONOCYTES % (AUTO) 6 % (2-9); NEUTROPHILS % (AUTO) 78 % (42-75); PLATELET COUNT 52 x10^3/uL (130-400); RED BLOOD COUNT 3.16 x10^6/uL (4.38-5.82); RED CELL DISTRIBUTION WIDTH 17.8 % (9.4-14.8)
[2021-02-17 03:51] LABS: ALBUMIN 1.3 g/dL (3.4-5.0); ANION GAP 7 mmol/L (5-15); CALCIUM 6.7 mg/dL (8.5-10.1); CHLORIDE 96 mmol/L (98-107)
[2021-02-17 03:56] LABS: ALANINE AMINOTRANSFERASE 29 U/L (12-78); ALKALINE PHOSPHATASE 76 U/L (45-117); BILIRUBIN,TOTAL 1.3 mg/dL (0.2-1.0); CREATININE 0.57 mg/dL (0.7-1.3); TOTAL PROTEIN 4.2 g/dL (6.4-8.2)
[2021-02-17] MEDS: METRONIDAZOLE PMX 500MG/100ML 100 ML IV SCH ×3 (04:01→21:15)
[2021-02-17] MEDS: MORPHINE SULFATE 4 MG/ML, 1ML IVPush PRN ×3 (04:04→20:50)
[2021-02-17 04:09] LABS: MD NO
[2021-02-17] MEDS: PANTOPRAZOLE 40 MG IV IVPush SCH ×2 (08:08→20:49)
[2021-02-17 08:11] LABS: INTERNATIONAL NORMALIZED RATIO 1.41 (0.93-1.1)
[2021-02-17] MEDS ORDERED: EPINEPHRINE SYRINGE 0.1 MG/ML, 10ML ONE (10:06)
[2021-02-17] MEDS: AMIODARONE 450 MG in DEXTROSE 5% 241 ML IV PRN (10:38)
[2021-02-17] MEDS ORDERED: MIDAZOLAM 1 MG/ML, 2ML ONE (11:09)
[2021-02-17] MEDS ORDERED: PROPOFOL 10 MG/ML, 20ML ONE (11:11)
[2021-02-17] MEDS ORDERED: SUCCINYLCHOLINE 20 MG/ML, 10ML ONE (11:11)
[2021-02-17] MEDS ORDERED: PROMETHAZINE 25 MG/ML, 1ML IV PRN (11:30)
[2021-02-17] MEDS ORDERED: HYDROmorphone 1 MG/ML, 1ML INJ IV PRN (11:30)
[2021-02-17] MEDS ORDERED: OXYcodone 5 MG/5 ML ORAL.SOL UDC PO PRN (11:30)
[2021-02-17] MEDS ORDERED: hydrALAzine 20 MG/ML, 1ML IV PRN (11:30)
[2021-02-17] MEDS ORDERED: MEPERIDINE/PF 25MG/0.5ML IVPush PRN (11:30)
[2021-02-17] MEDS ORDERED: DIAZEPAM 5 MG/ML, 2ML IV PRN ×2 (11:30)
[2021-02-17] MEDS ORDERED: FENTANYL PF 100 MCG/2ML IV PRN (11:30)
[2021-02-17] MEDS ORDERED: ONDANSETRON 2MG/ML, 2ML IVPush PRN (11:30)
[2021-02-17] MEDS ORDERED: ALBUTEROL SULFATE 2.5 MG/3 ML NPPB PRN (11:30)
[2021-02-17] MEDS ORDERED: LABETALOL 5MG/ML, 20ML IV PRN (11:30)
[2021-02-17] MEDS ORDERED: KETOROLAC 30 MG/1 ML IV PRN (11:30)
[2021-02-17] MEDS ORDERED: METOCLOPRAMIDE 5 MG/ML, 2ML IV PRN (11:30)
[2021-02-17] MEDS: MIDODRINE 5 MG TABLET PO SCH ×3 (12:31→20:49)
[2021-02-17] MEDS: SULFAMETH./TRIMETHOPRIM DS 800MG/160MG TABLET PO SCH (12:31)
[2021-02-17] MEDS: MULTIVITAMIN 1 TABLET PO SCH (12:31)
[2021-02-17] MEDS: CALCIUM CARBONATE 500 MG TAB.CHEW PO SCH ×3 (12:31→20:49)
[2021-02-17] MEDS: BICTEGRAV/EMTRICIT/TENOFOV ALA TAB PO SCH (12:33)
[2021-02-17] MEDS: THIAMINE 100 MG in SODIUM CHLORIDE 0.9% 50 ML IV SCH (16:50)
[2021-02-17] MEDS: NOREPINEPHRINE 32 MG in SODIUM CHLORIDE 0.9% 218 ML IV PRN (17:01)
[2021-02-17] MEDS ORDERED: PENICILLIN IV SCH (19:13)
[2021-02-17] MEDS: PENICILLIN GK 4,000,000 UNITS in DEXTROSE 5% 100 ML IV SCH (19:55)
[2021-02-17] MEDS: ONDANSETRON 2MG/ML, 2ML IVPush PRN (20:55)
[2021-02-17] MEDS: MICAFUNGIN 150 MG in SODIUM CHLORIDE 0.9% 100 ML IV SCH (22:10)
[2021-02-18] MEDS: PENICILLIN GK 4,000,000 UNITS in DEXTROSE 5% 100 ML IV SCH ×7 (00:27→23:59)
[2021-02-18] MEDS: FILTER 0.22 MICRON IV PRN (01:19)
[2021-02-18] MEDS: AMIODARONE 450 MG in DEXTROSE 5% 241 ML IV PRN (01:21)
[2021-02-18] MEDS: MORPHINE SULFATE 4 MG/ML, 1ML IVPush PRN ×3 (03:43→23:03)
[2021-02-18] MEDS: CEFTRIAXONE 2 GM in DEXTROSE 5% 50 ML IVPB SCH (03:54)
[2021-02-18] MEDS: METRONIDAZOLE PMX 500MG/100ML 100 ML IV SCH ×3 (05:51→21:07)
[2021-02-18] MEDS: SULFAMETH./TRIMETHOPRIM DS 800MG/160MG TABLET PO SCH (08:40)
[2021-02-18] MEDS: MULTIVITAMIN 1 TABLET PO SCH (08:40)
[2021-02-18] MEDS: MIDODRINE 5 MG TABLET PO SCH ×3 (08:40→21:08)
[2021-02-18] MEDS: PANTOPRAZOLE 40MG TABLET PO SCH ×2 (08:41→21:07)
[2021-02-18] MEDS: CALCIUM CARBONATE 500 MG TAB.CHEW PO SCH ×3 (08:41→21:07)
[2021-02-18] MEDS: BICTEGRAV/EMTRICIT/TENOFOV ALA TAB PO SCH (08:41)
[2021-02-18 11:01] LABS: MEAN CORPUSCULAR HEMOGLOBIN 30.6 pg (27.5-34.5); MEAN CORPUSCULAR HGB CONC 33.8 g/dL (33.2-36.2); MEAN PLATELET VOLUME 9.6 fL (7.4-10.4); RED BLOOD COUNT 2.99 x10^6/uL (4.38-5.82); RED CELL DISTRIBUTION WIDTH 18.9 % (9.4-14.8)
[2021-02-18 11:11] LABS: ANION GAP 8 mmol/L (5-15); CALCIUM 6.5 mg/dL (8.5-10.1); CHLORIDE 96 mmol/L (98-107)
[2021-02-18 11:13] LABS: CREATININE 0.65 mg/dL (0.7-1.3)
[2021-02-18 11:18] LABS: PLATELET COUNT 38 x10^3/uL (130-400)
[2021-02-18 11:19] LABS: MD YES
[2021-02-18 11:22] LABS: ANISOCYTOSIS 1+; BAND#(MANUAL) 0.23 x10^3/uL; BANDS%(MANUAL) 2 % (0-7); BASOS#(MANUAL) 0.11 x10^3/uL (0-0.1); BASOS% (MANUAL) 1 % (0-1); LYMPH#(MANUAL) 0.23 x10^3/uL (1-3.4); LYMPHS% (MANUAL) 2 % (22-44); MONOS#(MANUAL) 0.23 x10^3/uL (0.3-2.7); MONOS% (MANUAL) 2 % (2-9); SEGS% (MANUAL) 93 % (42-75)
[2021-02-18 11:23] LABS: <PLATELET ESTIMATE> DECREASED; <PLT MORPHOLOGY> NORMAL PLT MORPH; POLYCHROMASIA 1+; SMUDGE CELLS 1+; SPHEROCYTES 1+; TOXIC GRAN 1+
[2021-02-18 11:25] LABS: STOMATOCYTES 1+
[2021-02-18] MEDS ORDERED: AZITHROMYCIN 600 MG TABLET PO SCH (15:00)
[2021-02-18] MEDS: NOREPINEPHRINE 32 MG in SODIUM CHLORIDE 0.9% 218 ML IV PRN (15:14)
[2021-02-18] MEDS: METOCLOPRAMIDE 5 MG/ML, 2ML IVPush PRN (21:00)
[2021-02-18] MEDS ORDERED: METOCLOPRAMIDE 5 MG/ML, 2ML ONE (21:00)
[2021-02-18] MEDS ORDERED: ONDANSETRON 2MG/ML, 2ML ONE (22:04)
[2021-02-18] MEDS: MICAFUNGIN 150 MG in SODIUM CHLORIDE 0.9% 100 ML IV SCH (22:06)
[2021-02-18] MEDS: ONDANSETRON 2MG/ML, 2ML IVPush PRN (22:06)
[2021-02-19 03:35] LABS: MEAN CORPUSCULAR HEMOGLOBIN 30.3 pg (27.5-34.5); MEAN CORPUSCULAR HGB CONC 33.3 g/dL (33.2-36.2); MEAN PLATELET VOLUME 9.8 fL (7.4-10.4); RED BLOOD COUNT 3.05 x10^6/uL (4.38-5.82); RED CELL DISTRIBUTION WIDTH 20.6 % (9.4-14.8)
[2021-02-19 03:37] LABS: ALANINE AMINOTRANSFERASE 32 U/L (12-78); ALBUMIN 1.2 g/dL (3.4-5.0); ANION GAP 7 mmol/L (5-15); CALCIUM 6.3 mg/dL (8.5-10.1); CHLORIDE 97 mmol/L (98-107)
[2021-02-19 03:40] LABS: ALKALINE PHOSPHATASE 77 U/L (45-117); BILIRUBIN,TOTAL 1.7 mg/dL (0.2-1.0); CREATININE 0.73 mg/dL (0.7-1.3)
[2021-02-19 03:41] LABS: PLATELET COUNT 35 x10^3/uL (130-400)
[2021-02-19] MEDS: CEFTRIAXONE 2 GM in DEXTROSE 5% 50 ML IVPB SCH (03:55)
[2021-02-19 04:18] LABS: MD YES
[2021-02-19 04:20] LABS: BANDS%(MANUAL) 6 % (0-7); BASOS#(MANUAL) 0.12 x10^3/uL (0-0.1); BASOS% (MANUAL) 1 % (0-1); LYMPH#(MANUAL) 0.12 x10^3/uL (1-3.4); LYMPHS% (MANUAL) 1 % (22-44); METAMYELOCYTES# (MANUAL) 0.12 x10^3/uL (0-0); METAMYELOCYTES% (MANUAL) 1 % (0-1); MONOS#(MANUAL) 0.12 x10^3/uL (0.3-2.7); MONOS% (MANUAL) 1 % (2-9); MYELOCYTES# (MANUAL) 0.12 x10^3/uL (0-0); MYELOCYTES% (MANUAL) 1 % (0-0); SEG#(MANUAL) 10.32 x10^3/uL (1.8-6.8); SEGS% (MANUAL) 89 % (42-75)
[2021-02-19 04:21] LABS: ANISOCYTOSIS 1+
[2021-02-19 04:22] LABS: SPHEROCYTES 1+
[2021-02-19 04:23] LABS: <PLATELET ESTIMATE> DECREASED; <PLT MORPHOLOGY> NORMAL PLT MORPH; POLYCHROMASIA 1+; SMUDGE CELLS 1+; TOXIC GRAN 1+
[2021-02-19] MEDS: PENICILLIN GK 4,000,000 UNITS in DEXTROSE 5% 100 ML IV SCH ×5 (04:33→20:12)
[2021-02-19] MEDS: METRONIDAZOLE PMX 500MG/100ML 100 ML IV SCH ×3 (05:47→21:23)
[2021-02-19] MEDS: ONDANSETRON 2MG/ML, 2ML IVPush PRN ×3 (06:30→21:24)
[2021-02-19] MEDS ORDERED: CALCIUM CHLORIDE 13.6 MEQ in SODIUM CHLORIDE 0.9% 100 ML IV ONE (07:00)
[2021-02-19] MEDS: MIDODRINE 5 MG TABLET PO SCH ×3 (08:37→21:23)
[2021-02-19] MEDS: MULTIVITAMIN 1 TABLET PO SCH (08:37)
[2021-02-19] MEDS: PANTOPRAZOLE 40MG TABLET PO SCH ×2 (08:37→21:24)
[2021-02-19] MEDS: CALCIUM CARBONATE 500 MG TAB.CHEW PO SCH ×3 (08:38→21:00)
[2021-02-19] MEDS: SULFAMETH./TRIMETHOPRIM DS 800MG/160MG TABLET PO SCH (08:38)
[2021-02-19] MEDS: BICTEGRAV/EMTRICIT/TENOFOV ALA TAB PO SCH (08:39)
[2021-02-19] MEDS ORDERED: SODIUM PHOSPHATE 20 MMOL in SODIUM CHLORIDE 0.9% 500 ML IV ONE (09:00)
[2021-02-19] MEDS ORDERED: TPN PER PHARMACY MC PRN (09:30)
[2021-02-19] MEDS: ALBUMIN HUMAN 25% 100 ML IV SCH ×4 (09:43→13:19)
[2021-02-19] MEDS ORDERED: [UNRECOGNIZED DRUG - OTHER] IV SCH (17:00)
[2021-02-19] MEDS ORDERED: DEXTROSE 70% IV SCH (17:00)
[2021-02-19] MEDS ORDERED: SMOF TPN IV SCH (17:00)
[2021-02-19] MEDS ORDERED: DEXTROSE 10% 500 ML IV PRN (17:00)
[2021-02-19] MEDS ORDERED: DEXTROSE 50%, 50ML SYRINGE IVPush PRN (17:00)
[2021-02-19] MEDS ORDERED: AMINO ACID 10% IV SCH (17:00)
[2021-02-19] MEDS ORDERED: FAT EMUL IV SCH (17:00)
[2021-02-19] MEDS: METOCLOPRAMIDE 5 MG/ML, 2ML IVPush PRN ×2 (17:03→23:13)
[2021-02-19] MEDS: FILTER, DISP 1.2 MICRON FOR TPN/PVN IV PRN (17:03)
[2021-02-19] MEDS: INSULIN REGULAR LOW DOSE Q6H X 48HRS SQ-INSULIN SCH (21:00)
[2021-02-19] MEDS: MICAFUNGIN 150 MG in SODIUM CHLORIDE 0.9% 100 ML IV SCH (23:13)
[2021-02-19] MEDS: MORPHINE SULFATE 4 MG/ML, 1ML IVPush PRN (23:13)
[2021-02-20] MEDS: PENICILLIN GK 4,000,000 UNITS in DEXTROSE 5% 100 ML IV SCH ×6 (00:26→22:17)
[2021-02-20] MEDS: INSULIN REGULAR LOW DOSE Q6H X 48HRS SQ-INSULIN SCH ×4 (03:00→20:42)
[2021-02-20 03:34] LABS: ALANINE AMINOTRANSFERASE 30 U/L (12-78); ALBUMIN 1.8 g/dL (3.4-5.0); ANION GAP 5 mmol/L (5-15); CALCIUM 6.8 mg/dL (8.5-10.1); CHLORIDE 101 mmol/L (98-107); CREATININE 0.58 mg/dL (0.7-1.3)
[2021-02-20 03:38] LABS: ALKALINE PHOSPHATASE 83 U/L (45-117); BILIRUBIN,TOTAL 3.1 mg/dL (0.2-1.0); TOTAL PROTEIN 4.1 g/dL (6.4-8.2); TRIGLYCERIDES 155 mg/dL (50-200)
[2021-02-20 03:42] LABS: PREALBUMIN < 3.0 mg/dL (20.0-40.0)
[2021-02-20] MEDS: CEFTRIAXONE 2 GM in DEXTROSE 5% 50 ML IVPB SCH (03:52)
[2021-02-20] MEDS: METRONIDAZOLE PMX 500MG/100ML 100 ML IV SCH ×3 (05:28→20:41)
[2021-02-20] MEDS: SULFAMETH./TRIMETHOPRIM DS 800MG/160MG TABLET PO SCH (08:35)
[2021-02-20] MEDS: MULTIVITAMIN 1 TABLET PO SCH (08:35)
[2021-02-20] MEDS: CALCIUM CARBONATE 500 MG TAB.CHEW PO SCH ×3 (08:35→20:42)
[2021-02-20] MEDS: PANTOPRAZOLE 40MG TABLET PO SCH ×2 (08:35→20:42)
[2021-02-20] MEDS: MIDODRINE 5 MG TABLET PO SCH ×3 (08:36→20:42)
[2021-02-20] MEDS: BICTEGRAV/EMTRICIT/TENOFOV ALA TAB PO SCH (08:36)
[2021-02-20 11:01] LABS: % IRON SATURATION 30 % (20-55); IRON LEVEL 32 mcg/dL (65-175); TOTAL IRON BINDING CAPACITY 107 mcg/dL (250-450)
[2021-02-20] MEDS: METOCLOPRAMIDE 5 MG/ML, 2ML IVPush PRN ×2 (13:41→20:42)
[2021-02-20] MEDS ORDERED: [UNRECOGNIZED DRUG - OTHER] IV SCH (17:00)
[2021-02-20] MEDS ORDERED: SMOF TPN IV SCH (17:00)
[2021-02-20] MEDS ORDERED: DEXTROSE 70% IV SCH (17:00)
[2021-02-20] MEDS ORDERED: AMINO ACID 10% IV SCH (17:00)
[2021-02-20] MEDS ORDERED: FAT EMUL IV SCH (17:00)
[2021-02-20] MEDS: FILTER, DISP 1.2 MICRON FOR TPN/PVN IV PRN (17:10)
[2021-02-20] MEDS: MORPHINE SULFATE 4 MG/ML, 1ML IVPush PRN (23:25)
[2021-02-20] MEDS: MICAFUNGIN 150 MG in SODIUM CHLORIDE 0.9% 100 ML IV SCH (23:25)
[2021-02-21] MEDS: PENICILLIN GK 4,000,000 UNITS in DEXTROSE 5% 100 ML IV SCH ×5 (01:51→21:20)
[2021-02-21] MEDS: INSULIN REGULAR LOW DOSE Q6H X 48HRS SQ-INSULIN SCH ×2 (03:00→09:00)
[2021-02-21 03:20] LABS: MEAN CORPUSCULAR HEMOGLOBIN 31.6 pg (27.5-34.5); MEAN CORPUSCULAR HGB CONC 34.2 g/dL (33.2-36.2); MEAN PLATELET VOLUME 9.9 fL (7.4-10.4); RED CELL DISTRIBUTION WIDTH 21.2 % (9.4-14.8)
[2021-02-21 03:23] LABS: PLATELET COUNT 35 x10^3/uL (130-400)
[2021-02-21 03:30] LABS: ANION GAP 7 mmol/L (5-15); CALCIUM 6.5 mg/dL (8.5-10.1); CHLORIDE 98 mmol/L (98-107); CREATININE 0.54 mg/dL (0.7-1.3)
[2021-02-21] MEDS: CEFTRIAXONE 2 GM in DEXTROSE 5% 50 ML IVPB SCH (03:59)
[2021-02-21 04:15] LABS: MD YES
[2021-02-21 04:17] LABS: <PLATELET ESTIMATE> DECREASED; <PLT MORPHOLOGY> NORMAL PLT MORPH; ANISOCYTOSIS 1+; BAND#(MANUAL) 0.19 x10^3/uL; BANDS%(MANUAL) 2 % (0-7); EOS% (MANUAL) 1 % (1-7); LYMPH#(MANUAL) 1.73 x10^3/uL (1-3.4); LYMPHS% (MANUAL) 18 % (22-44); MONOS#(MANUAL) 0.29 x10^3/uL (0.3-2.7); MONOS% (MANUAL) 3 % (2-9); POLYCHROMASIA 1+; SMUDGE CELLS 1+
[2021-02-21 04:20] LABS: OVALOCYTES 1+; SEGS% (MANUAL) 76 % (42-75)
[2021-02-21 04:21] LABS: SPHEROCYTES 1+
[2021-02-21 04:22] LABS: TOXIC GRAN 1+
[2021-02-21] MEDS: METRONIDAZOLE PMX 500MG/100ML 100 ML IV SCH ×3 (04:45→21:47)
[2021-02-21] MEDS: METOCLOPRAMIDE 5 MG/ML, 2ML IVPush PRN ×3 (04:46→19:25)
[2021-02-21] MEDS: BICTEGRAV/EMTRICIT/TENOFOV ALA TAB PO SCH (08:47)
[2021-02-21] MEDS: MIDODRINE 5 MG TABLET PO SCH ×3 (08:47→20:34)
[2021-02-21] MEDS: PANTOPRAZOLE 40MG TABLET PO SCH ×2 (08:47→20:34)
[2021-02-21] MEDS: CALCIUM CARBONATE 500 MG TAB.CHEW PO SCH ×4 (08:47→20:51)
[2021-02-21] MEDS: SULFAMETH./TRIMETHOPRIM DS 800MG/160MG TABLET PO SCH (08:47)
[2021-02-21 10:31] VITALS: BP 94/59
[2021-02-21 13:56] VITALS: BP 112/67
[2021-02-21] MEDS ORDERED: DEXTROSE 70% IV SCH (17:00)
[2021-02-21] MEDS ORDERED: SMOF TPN IV SCH (17:00)
[2021-02-21] MEDS ORDERED: [UNRECOGNIZED DRUG - OTHER] IV SCH (17:00)
[2021-02-21] MEDS ORDERED: AMINO ACID 10% IV SCH (17:00)
[2021-02-21] MEDS ORDERED: FILTER, DISP 1.2 MICRON FOR TPN/PVN IV PRN (17:00)
[2021-02-21] MEDS ORDERED: FAT EMUL IV SCH (17:00)
[2021-02-21 19:17] VITALS: BP 96/64
[2021-02-21] MEDS ORDERED: INSULIN REGULAR LOW DOSE QDAY SQ-INSULIN SCH (21:00)
[2021-02-21] MEDS: MICAFUNGIN 150 MG in SODIUM CHLORIDE 0.9% 100 ML IV SCH (22:58)
[2021-02-21] MEDS: MORPHINE SULFATE 4 MG/ML, 1ML IVPush PRN (23:01)
[2021-02-22 01:40] VITALS: BP 94/64
[2021-02-22] MEDS: PENICILLIN GK 4,000,000 UNITS in DEXTROSE 5% 100 ML IV SCH ×5 (02:25→22:14)
[2021-02-22] MEDS: CEFTRIAXONE 2 GM in DEXTROSE 5% 50 ML IVPB SCH (03:29)
[2021-02-22] MEDS: METOCLOPRAMIDE 5 MG/ML, 2ML IVPush PRN ×2 (04:29→11:02)
[2021-02-22] MEDS: METRONIDAZOLE PMX 500MG/100ML 100 ML IV SCH ×3 (06:21→23:48)
[2021-02-22 06:33] LABS: RED BLOOD COUNT 2.33 x10^6/uL (4.38-5.82)
[2021-02-22 06:38] LABS: PLATELET COUNT 43 x10^3/uL (130-400)
[2021-02-22 06:45] LABS: ANION GAP 9 mmol/L (5-15); CALCIUM 6.5 mg/dL (8.5-10.1); CHLORIDE 95 mmol/L (98-107); CREATININE 0.83 mg/dL (0.7-1.3)
[2021-02-22 07:09] LABS: MD YES
[2021-02-22 07:31] LABS: BAND#(MANUAL) 0.26 x10^3/uL; BANDS%(MANUAL) 2 % (0-7); BASOS#(MANUAL) 0.13 x10^3/uL (0-0.1); BASOS% (MANUAL) 1 % (0-1); EOS#(MANUAL) 0.65 x10^3/uL (0.0-0.4); EOS% (MANUAL) 5 % (1-7); LYMPH#(MANUAL) 1.16 x10^3/uL (1-3.4); LYMPHS% (MANUAL) 9 % (22-44); METAMYELOCYTES# (MANUAL) 0.13 x10^3/uL (0-0); METAMYELOCYTES% (MANUAL) 1 % (0-1); MONOS#(MANUAL) 0.39 x10^3/uL (0.3-2.7); MONOS% (MANUAL) 3 % (2-9); SEG#(MANUAL) 10.19 x10^3/uL (1.8-6.8); SEGS% (MANUAL) 79 % (42-75)
[2021-02-22 07:32] LABS: <PLATELET ESTIMATE> DECREASED; <PLT MORPHOLOGY> NORMAL PLT MORPH; ANISOCYTOSIS 1+; POLYCHROMASIA 1+; SMUDGE CELLS 1+
[2021-02-22] MEDS: MIDODRINE 5 MG TABLET PO SCH ×4 (08:21→21:00)
[2021-02-22] MEDS: CALCIUM CARBONATE 500 MG TAB.CHEW PO SCH ×4 (08:21→21:00)
[2021-02-22] MEDS: SULFAMETH./TRIMETHOPRIM DS 800MG/160MG TABLET PO SCH (08:22)
[2021-02-22] MEDS: PANTOPRAZOLE 40MG TABLET PO SCH ×2 (08:23→21:00)
[2021-02-22] MEDS: BICTEGRAV/EMTRICIT/TENOFOV ALA TAB PO SCH (08:23)
[2021-02-22 08:26] VITALS: BP 112/64
[2021-02-22] MEDS ORDERED: INSULIN REGULAR MEDIUM DOSE QDAY SQ-INSULIN SCH (09:00)
[2021-02-22] MEDS ORDERED: CYANOCOBALAMIN 1,000 MCG TABLET PO SCH (09:00)
[2021-02-22 11:03] VITALS: BP 93/59
[2021-02-22] MEDS: ONDANSETRON 2MG/ML, 2ML IVPush PRN ×3 (11:12→22:38)
[2021-02-22 14:10] VITALS: BP 80/43
[2021-02-22] MEDS ORDERED: SODIUM CHLORIDE 0.9%, 500ML IVBOLUS ONE (15:00)
[2021-02-22 16:41] VITALS: BP 73/35
[2021-02-22] MEDS ORDERED: FAT EMUL IV SCH (17:00)
[2021-02-22] MEDS ORDERED: DEXTROSE 70% IV SCH (17:00)
[2021-02-22] MEDS ORDERED: FILTER, DISP 1.2 MICRON FOR TPN/PVN IV PRN (17:00)
[2021-02-22] MEDS ORDERED: AMINO ACID 10% IV SCH (17:00)
[2021-02-22] MEDS ORDERED: [UNRECOGNIZED DRUG - OTHER] IV SCH (17:00)
[2021-02-22] MEDS ORDERED: SMOF TPN IV SCH (17:00)
[2021-02-22 19:33] VITALS: BP 93/57
[2021-02-23 00:15] VITALS: BP 82/50
[2021-02-23] MEDS ORDERED: SODIUM CHLORIDE 0.9%, 500ML IVBOLUS ONE (01:00)
[2021-02-23] MEDS ORDERED: ALBUMIN HUMAN 25% 100 ML IV ONE (01:00)
== END 2021-02-23 04:45 | disposition expired | DRG 974 ==
LOC: ED 01:35 → EDIP 02:35 → CCU 04:19 → 3N 02-21 09:48
PROVIDERS: ADMIT Internal Medicine; ATTEND Internal Medicine
PROC: 0T9B70Z Drainage of Bladder with Drainage Device, Via Natural or Artificial Opening (ICD-10-PCS; 2021-02-13)
PROC: 30233N1 Transfusion of Nonautologous Red Blood Cells into Peripheral Vein, Percutaneous Approach (ICD-10-PCS; 2021-02-13)
PROC: 30233R1 Transfusion of Nonautologous Platelets into Peripheral Vein, Percutaneous Approach (ICD-10-PCS; 2021-02-13)
PROC: 05HM33Z Insertion of Infusion Device into Right Internal Jugular Vein, Percutaneous Approach (ICD-10-PCS; 2021-02-13)
PROC: B543ZZA Ultrasonography of Right Jugular Veins, Guidance (ICD-10-PCS; 2021-02-13)
PROC: 009U3ZX Drainage of Spinal Canal, Percutaneous Approach, Diagnostic (ICD-10-PCS; principal; 2021-02-14)
PROC: B01B1ZZ Fluoroscopy of Spinal Cord using Low Osmolar Contrast (ICD-10-PCS; 2021-02-14)
PROC: 0DB48ZX Excision of Esophagogastric Junction, Via Natural or Artificial Opening Endoscopic, Diagnostic (ICD-10-PCS; 2021-02-17)
PROC: 0DB68ZX Excision of Stomach, Via Natural or Artificial Opening Endoscopic, Diagnostic (ICD-10-PCS; 2021-02-17)
PROC: 0DB58ZX Excision of Esophagus, Via Natural or Artificial Opening Endoscopic, Diagnostic (ICD-10-PCS; 2021-02-17)
PROC: 0DB98ZX Excision of Duodenum, Via Natural or Artificial Opening Endoscopic, Diagnostic (ICD-10-PCS; 2021-02-17)
PROC: 02HV33Z Insertion of Infusion Device into Superior Vena Cava, Percutaneous Approach (ICD-10-PCS; 2021-02-19)
PROC: B548ZZA Ultrasonography of Superior Vena Cava, Guidance (ICD-10-PCS; 2021-02-19)
DX: A41.9 Sepsis, unspecified organism (principal); R65.21 Severe sepsis with septic shock; B20 Human immunodeficiency virus [HIV] disease; N17.0 Acute kidney failure with tubular necrosis; J96.01 Acute respiratory failure with hypoxia; E43 Unspecified severe protein-calorie malnutrition; G93.41 Metabolic encephalopathy; K22.11 Ulcer of esophagus with bleeding; A52.3 Neurosyphilis, unspecified; B18.1 Chronic viral hepatitis B without delta-agent; D62 Acute posthemorrhagic anemia; B37.0 Candidal stomatitis; E87.1 Hypo-osmolality and hyponatremia; I47.2 Ventricular tachycardia; Z20.822 Contact with and (suspected) exposure to COVID-19; D63.8 Anemia in other chronic diseases classified elsewhere; D69.59 Other secondary thrombocytopenia; E53.8 Deficiency of other specified B group vitamins; E61.1 Iron deficiency; E83.39 Other disorders of phosphorus metabolism; E86.0 Dehydration; E87.5 Hyperkalemia; F15.10 Other stimulant abuse, uncomplicated; K29.80 Duodenitis without bleeding; G89.29 Other chronic pain; I48.91 Unspecified atrial fibrillation; K62.89 Other specified diseases of anus and rectum; K80.20 Calculus of gallbladder without cholecystitis without obstruction; Z91.14 Patient's other noncompliance with medication regimen; Z79.899 Other long term (current) drug therapy; Z68.21 Body mass index [BMI] 21.0-21.9, adult
CPT/HCPCS: 36415; 36430; 36556; 36573; 36600; 62328; 71045; 71260; 74177; 76700; 76705; 80048; 80053; 80061; 80307; 81001; 82140; 82330; 82607; 82728; 82803; 82945; 82962; 83036; 83540; 83550; 83605; 83735; 84100; 84134; 84145; 84157; 84300; 84443; 84478; 84484; 85014; 85018; 85025; 85610; 86361; 86592; 86780; 86850; 86900; 86923; 87040; 87081; 87491; 87517; 87536; 87591; 87635; 88305; 89051; 93005; 93308; 99292; G0378; J0561; J0610; J0696; J0878; J2248; J2250; J2405; J2540; J2704; J3010; J3230; J3370; J3411; J3475; J3480; J7060; J7070; P9047; Q9967; C1751; C9113; J0282; J0330; J2270; J2765; J3420; J7030; J7040; J7050; P9016; P9035; Q0161